=== PATIENT | female | born 1930 | race Caucasian/White ===

== ENCOUNTER → 2017-03-22 | Outpatient (CLI) | payer MEDICARE ==
[~2017-03-22] MED LIST: ASPIRIN81 M1 PO; ATENOLOL25 MG PO; CALCIUM 600+D1 EACH PO; CELEBREX200 MG PO; COZAAR100 MG PO; MULTIVITAMIN1 TAB PO; PRAVASTATIN SOD20 MG PO; RANITIDINE HYD300 MG PO; ZANTAC150 MG PO
== END | disposition home or self-care (01) ==
LOC: MAMMO 02:52
DX: Z12.31 Encounter for screening mammogram for malignant neoplasm of breast (principal)

== ENCOUNTER → 2018-03-27 | Outpatient (CLI) | payer MEDICARE | END | disposition home or self-care (01) | LOC: MAMMO 01:22 | DX: Z12.31 Encounter for screening mammogram for malignant neoplasm of breast (principal) ==